=== PATIENT | female | born 1985 | race Caucasian/White ===

== ENCOUNTER 2016-06-06 23:08 | Emergency (ER) | payer OTHER ==
--- NOTE | ~2016-06-06 | CT71 ---
[facility] A Service [facility] RADIOLOGY TEXT RESULTS PATIENT: JUSTIN DOUGLASS LOCATION: SED : 83 UNIT #: [id number] AGE: [address]: Niranjan Angel MD SEX: F ORDER DR: [id number] [place] [id number] E MR#: [id number] Acc #: [id number] NAME: JUSTIN DOUGLASS : 1985 SEX: F STUDY DATE/TIME: 06/07/2016 0:58 UNIT: SED ROOM: STUDY DESCRIPTION: CT Head Wo Contrast Attending Physician: Niranjan Angel M.D. Ordering Physician: Niranjan Angel M.D. Primary Care Physician: Primary Care Physician No MEDICAL IMAGING REPORT This report is preliminary unless electronic signature is present. EXAM CT scan of the head without contrast INDICATIONS Seizure yesterday with trauma to back of head and posterior headache since then. COMPARISON 06/28/2011. TECHNIQUE Axial noncontrast images were obtained from the skull base to the vertex. This CT exam was performed with one or more of the following radiation dose reduction techniques: Automatic exposure control, adjustment of mA and/or kV according to patient size, and iterative reconstruction. FINDINGS Ventricular size and configuration are normal. There is no evidence of acute infarct or hemorrhage. There are no extraaxial fluid collections. No mass lesion or mass effect is seen. There are no skull fractures. IMPRESSION Normal noncontrast head CT. Dictated by... Tarun Lombardo M.D. THIS IS AN ELECTRONICALLY VERIFIED REPORT Tarun Lombardo M.D. at 06/07/2016 5:05 AM [facility] A Service [facility] RADIOLOGY TEXT RESULTS PATIENT: JUSTIN DOUGLASS LOCATION: SED : 83 UNIT #: [id number] AGE: [address]: Niranjan Angel MD SEX: F ORDER DR: LIEN/selene TD: 06/07/2016 02:45 JOB #: [id number] MEDICAL IMAGING REPORT Page 1 of 1
[~2016-06-06 23:08] MED LIST: ACETAMINOPHEN PO; CELEXA PO; CELEXA10 MG; CERTAGEN PO; CIPRO PO; CITALOPRAM HBR40 M1 PO; CLINDAMYCIN PO; DAYPRO600 M1 PO; DIFLUCAN PO; DOXYCYCLINE PO; EXCEDRIN EXTRA1 EAC1 PO; FIORICET 50-321 EACH PO; FLAGYL PO; HYDROCODON-ACE1 EAC7 PO; IBUPROFEN PO; IBUPROFEN25 GM PO; IBUPROFEN600 MG PO; IBUPROFEN800 MG PO; LORTAB 10-5001 EACH PO; LORTAB 10/500 T1 TAB PO; LORTAB 5/500 TA1 TA2 PO; METRONIDAZOLE PO; ORUDIS75 M1 DOB; PAXIL PO; PEN-VEE K PO; PENICILLIN; PERIDEX480 ML PO; PHENERGAN25 MG PO; PRILOSEC PO; PYRIDIUM PO; RISPERIDONE PO; SEROQUEL PO; STRATTERA40 MG PO; TOPAMAX50 MG PO; TYLENOL ALLERGY1 TA1 PO; TYLENOL ARTHRITIS PO; ULTRAM PO; VICODIN 5/500 T1 TAB PO; VICODIN PO; ZANAFLEX PO
[2016-06-07 00:09] LABS: URINE APPEARANCE CLEAR; URINE BILIRUBIN NEG (NEG); URINE BLOOD NEG (NEG); URINE COLOR YELLOW; URINE GLUCOSE NEG (NORM); URINE KETONE NEG (NEG); URINE LEUKOCYTE ESTERASE NEG (NEG); URINE NITRATE NEG (NEG); URINE PROTEIN NEG (NEG); URINE SOURCE CLEAN CATCH; URINE SPECIFIC GRAVITY 1.015 (1.003-1.035); URINE UROBILINOGEN 0.2 MG/DL (NORM)
[2016-06-07 00:12] LABS: MICRO INDICATED? NO
[2016-06-07 00:19] LABS: AMPHETAMINE NEG (NEG); BARBITURATES NEG (NEG); BENZODIAZEPINES NEG (NEG); COCAINE NEG (NEG); MARIJUANA NEG (NEG); OPIATES NEG (NEG); TRICYCLIC ANTIDEPRESSANTS NEG (NEG); U METHADONE NEG (NEG)
[2016-06-07 00:34] LABS: BASOPHIL# 0.1 X10e3 (0-0.3); BASOPHIL% 0.8 % (0-2.5); EOSINOPHIL# 0.5 X10e3 (0-0.7); EOSINOPHIL% 3.9 % (0.0-7.0); HEMATOCRIT 39.7 % (35.0-45.0); HEMOGLOBIN 13.4 gm/dL (12.0-16.0); LYMPHOCYTE# 5.3 X10e3 (1.0-3.5); LYMPHOCYTE% 44.2 % (17.0-45.0); MEAN CORPUSCULAR HEMOGLOBIN 31.3 PG (28-34); MEAN CORPUSCULAR HGB CONC 33.6 g/dL (30-36); MEAN PLATELET VOLUME 7.9 FL (6.5-11.5); MONOCYTE% 8.4 % (3.0-12.0); NEUTROPHIL# 5.2 X10e3 (1.5-7.1); NEUTROPHIL% 42.7 % (40-75); PLATELET COUNT 370 X10e3 (140-420); RED BLOOD COUNT 4.27 X10e (3.90-5.30); RED CELL DISTRIBUTION WIDTH 14.8 % (11.0-15.5); WHITE BLOOD COUNT 12.1 X10e3 (4.0-10.5)
[2016-06-07 00:36] LABS: DIFF IND NO
[2016-06-07 00:52] LABS: CALCIUM SERUM 8.7 mg/dL (8.4-10.2); POTASSIUM 3.7 mmol/L (3.5-5.1)
== END 2016-06-07 02:01 | disposition home or self-care (01) ==
LOC: SED 23:08
PROVIDERS: Emergency Medicine
DX: S06.0X9A Concussion with loss of consciousness of unspecified duration, initial encounter (principal); F41.9 Anxiety disorder, unspecified; F19.939 Other psychoactive substance use, unspecified with withdrawal, unspecified
CPT/HCPCS: 36415; 70450; 80048; 80307; 81003; 84703; 85025; 99284

== ENCOUNTER 2016-08-19 00:29 | Emergency (ER) | payer OTHER ==
[2016-08-19] MEDS ORDERED: NEURONTIN (00:39)
[2016-08-19] MEDS ORDERED: LORTAB 5-325 M1 EACH (00:39)
[2016-08-19] MEDS ORDERED: PRILOSEC (00:40)
[2016-08-19] MEDS ORDERED: TOPAMAX (00:40)
[2016-08-19] MEDS ORDERED: CELEXA (00:40)
[2016-08-19] MEDS ORDERED: LATUDA20 MG (00:40)
[2016-08-19] MEDS ORDERED: ZYRTEC10 M1 (00:40)
[2016-08-19 00:49] LABS: URINE SOURCE CLEAN CATCH
[2016-08-19 00:52] LABS: URINE APPEARANCE CLEAR; URINE BILIRUBIN NEG (NEG); URINE BLOOD 3+ (NEG); URINE COLOR YELLOW; URINE GLUCOSE NEG (NORM); URINE KETONE NEG (NEG); URINE LEUKOCYTE ESTERASE 1+ (NEG); URINE NITRATE NEG (NEG); URINE PROTEIN NEG (NEG); URINE SPECIFIC GRAVITY 1.015 (1.003-1.035); URINE UROBILINOGEN 0.2 MG/DL (NORM)
[2016-08-19 00:54] LABS: MICRO INDICATED? YES
[2016-08-19 00:55] LABS: CULTURE INDICATED? NO; URINE BACTERIA NEG (NEG); URINE MUCUS PRESENT; URINE SQUAMOUS EPITHELIAL CELL FEW /[HPF]
[2016-08-19 01:06] LABS: AMPHETAMINE POS (NEG); BARBITURATES NEG (NEG); BENZODIAZEPINES NEG (NEG); COCAINE NEG (NEG); MARIJUANA NEG (NEG); OPIATES NEG (NEG); TRICYCLIC ANTIDEPRESSANTS POS (NEG); U METHADONE NEG (NEG)
== END 2016-08-19 01:33 | disposition home or self-care (01) ==
LOC: SED 00:29
PROVIDERS: Emergency Medicine
DX: F43.9 Reaction to severe stress, unspecified (principal); F32.9 Major depressive disorder, single episode, unspecified; F41.9 Anxiety disorder, unspecified
CPT/HCPCS: 80307; 81003; 84703; 99284